=== PATIENT | male | born 1980 | race Caucasian/White ===

== ENCOUNTER 2018-03-15 13:28 | Emergency (ER) | payer MEDICAID ==
[~2018-03-15] VITALS: Ht 175.3 cm; Wt 77.1 kg
--- NOTE | 2018-03-15 13:31 | NUR ---
PT BIBA BLS FOR ALOC TO BED 6
[2018-03-15 13:33] VITALS: BP 148/98
--- NOTE | 2018-03-15 13:54 | NUR ---
brought in by ems from a [address] [place] [address]---[place] [employer] on scene pt was being evicted--- pt refusing to answer questions, hyperverbal---UNABLE TO GET INFORMATION FROM PT. SKIN IS PINK/WARM/DRY; PATIENT POSITIONED FOR COMFORT; HOB ELEVATED; BEDRAILS UP X2; BED DOWN. ER MD MADE AWARE OF PT STATUS.
[2018-03-15 14:55] VITALS: BP 133/94
--- NOTE | 2018-03-15 14:55 | NUR ---
Patient discharged with v/s stable. Written and verbal after care instructions given and explained. Patient verbalized understanding. Ambulatory with steady gait. All questions addressed prior to discharge. Advised to follow up with PMD.
--- NOTE | 2018-03-15 15:10 | NUR ---
[facility] PT PRESENTED TO BEDSIDE, HOMELESS RESOURCES GIVEN TO PT.
--- NOTE | 2018-03-15 15:40 | NUR ---
[place] [employer] AT BEDSIDE TO ASSESS PT. PT HR 117, O2 SAT 98%, RR 16, BP 150/90 CHECKED BY CHARGE NURSE AT THIS TIME.
--- NOTE | 2018-03-15 15:51 | NUR ---
PT LEFT WITH [place] [employer].
== END 2018-03-15 15:51 ==
LOC: MED 13:28
DX: S80.11XA Contusion of right lower leg, initial encounter (principal); X58.XXXA Exposure to other specified factors, initial encounter; Y93.89 Activity, other specified; Y92.89 Other specified places as the place of occurrence of the external cause; Y99.8 Other external cause status
CPT/HCPCS: 99283